=== PATIENT | male | born 1960 | race Caucasian/White ===

== ENCOUNTER 2024-12-23 10:44 | Emergency (ER) | payer OTHER ==
[~2024-12-23] VITALS: Ht 177.8 cm; Wt 86.0 kg
[2024-12-23 11:31] VITALS: BP 162/99; PULSE 96; RESP 16; TEMP 98.2; O2SAT 95
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
[2024-12-23] MEDS: ACETAMINOPHEN 325 MG TAB PO ONE (11:49)
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
[2024-12-23] MEDS ORDERED: IBUP-1456 PO (12:25)
== END 2024-12-23 12:16 | disposition home or self-care (01) ==
LOC: EDBD 10:44 → ER 10:52
DX: S16.1XXA Strain of muscle, fascia and tendon at neck level, initial encounter (principal); S39.012A Strain of muscle, fascia and tendon of lower back, initial encounter; Z79.1 Long term (current) use of non-steroidal anti-inflammatories (NSAID); Z88.5 Allergy status to narcotic agent; V89.2XXA Person injured in unspecified motor-vehicle accident, traffic, initial encounter; Y93.89 Activity, other specified; Y92.89 Other specified places as the place of occurrence of the external cause; Y99.8 Other external cause status
CPT/HCPCS: 72040; 72100